=== PATIENT | female | born 1970 | race Caucasian/White ===

== ENCOUNTER 2019-05-11 20:35 | Emergency (ER) | payer SELFPAY ==
[~2019-05-11] VITALS: Ht 154.9 cm; Wt 59.0 kg
[2019-05-11 21:02] LABS: BASO # 0.1 x10^3/uL (0.0-0.2); BASO % 1 % (0-3); EOS # 0.3 x10^3/uL (0.0-0.7); EOS % 5 % (0-3); HEMATOCRIT 38.7 % (36.0-47.0); HEMOGLOBIN 13.2 g/dL (12.0-15.5); LYMPH # 2.5 x10^3/uL (1.0-4.8); LYMPH % 40 % (24-48); MEAN CORPUSCULAR HEMOGLOBIN 29 pg (25-35); MEAN CORPUSCULAR HGB CONC 34 g/dL (31-37); MEAN CORPUSCULAR VOLUME 84 fL (79-100); MONO # 0.6 x10^3/uL (0.0-1.1); MONO % 10 % (0-9); NEUT # 2.8 x10^3/uL (1.8-7.7); NEUT % 45 % (31-73); PLATELET COUNT 235 x10^3/uL (140-400); RED BLOOD COUNT 4.61 x10^6/uL (3.50-5.40); RED CELL DISTRIBUTION WIDTH 12.3 % (11.5-14.5); WHITE BLOOD COUNT 6.3 x10^3/uL (4.0-11.0)
[2019-05-11 21:09] LABS: CALCIUM 8.9 mg/dL (8.5-10.1); GFR 61.4; POTASSIUM 4.1 mmol/L (3.5-5.1)
[2019-05-11 21:14] LABS: ALBUMIN 3.5 g/dL (3.4-5.0); ALBUMIN/GLOBULIN RATIO 0.9 (1.0-1.7); MAGNESIUM 1.8 mg/dL (1.8-2.4); TOTAL BILIRUBIN 0.2 mg/dL (0.2-1.0); TOTAL PROTEIN 7.4 g/dL (6.4-8.2)
--- NOTE | 2019-05-11 21:24 | PHYS DOC ---
Past Medical History Past Medical History: Diabetes-Type II, Hypertension Past Surgical History: No Surgical History Alcohol Use: None Drug Use: None Adult General Chief Complaint Chief Complaint: SYNCOPE HPI HPI Patient is a 39-year-old female who presents after having had syncopal episode at work. Patient states that she was feeling lightheaded and sat down and then thinks she may have passed out. She is not sure exactly what happened. She does indicate that she had a severe headache earlier in the day that she rated at a 10 out of 10 and states that she took some Advil for the headache and headache and gotten better. She does indicate that headache is starting to return again. Patient indicates that initially when she developed lightheadedness that she thought that she was hypoglycemic and so drank some Coca-Cola. EMS reports that blood sugar was 402. Patient denies any chest pain or shortness of breath.[] Review of Systems Review of Systems Constitutional: Denies fever or chills [] Respiratory: Denies cough or shortness of breath [] Cardiovascular: No additional information not addressed in HPI [] GI: Denies abdominal pain, nausea, vomiting or diarrhea [] Integument: Denies rash or skin lesions [] Neurologic: Complains of headache without focal weakness or sensory changes [] All other systems were reviewed and found to be within normal limits, except as documented in this note. Current Medications Current Medications Current Medications Medications (Trade) Dose Ordered Sig/[facility] Start Time Stop Time Status Last Admin Dose Admin Ceftriaxone Sodium (Rocephin) 1 gm 1X ONCE 05/11/19 23:45 05/11/19 23:46 DC Insulin Human Regular (HumuLIN R VIAL) 10 unit 1X ONCE 05/11/19 23:00 05/11/19 23:01 DC 05/11/19 23:04 10 UNIT Allergies Allergies Allergies Coded Allergies Type Severity Reaction Last Updated Verified No Known Drug Allergies 05/11/19 No Physical Exam Physical Exam Constitutional: Well developed, well nourished, no acute distress, non-toxic appearance. [] HENT: Normocephalic, atraumatic, bilateral external ears normal, oropharynx moist, no oral exudates, nose normal. [] Eyes: PERRLA, EOMI, conjunctiva normal, no discharge. [] Neck: Normal range of motion, no tenderness, supple. [] Cardiovascular: Regular rate and rhythm[] Lungs & Thorax: Bilateral breath sounds clear to auscultation [] Abdomen: Bowel sounds normal, soft, no tenderness. [] Skin: Warm, dry, no erythema, no rash. [] Extremities: No tenderness, no cyanosis, no clubbing, ROM intact. [] Neurologic: Alert and oriented X 3, no focal deficits noted. [] Current Patient Data Vital Signs Vital Signs Date Time Temp Pulse Resp B/P (MAP) Pulse Ox O2 Delivery O2 Flow Rate FiO2 05/11/19 22:42 80 98/53 (68) 97 Room Air 05/11/19 21:00 97.6 16 97.6 Lab Values Laboratory Tests Test 05/11/19 20:55 05/11/19 22:38 05/11/19 23:01 White Blood Count 6.3 x10^3/uL (4.0-11.0) Red Blood Count 4.61 x10^6/uL (3.50-5.40) Hemoglobin 13.2 g/dL (12.0-15.5) Hematocrit 38.7 % (36.0-47.0) Mean Corpuscular Volume 84 fL (79-100) Mean Corpuscular Hemoglobin 29 pg (25-35) Mean Corpuscular Hemoglobin Concent 34 g/dL (31-37) Red Cell Distribution Width 12.3 % (11.5-14.5) Platelet Count 235 x10^3/uL (140-400) Neutrophils (%) (Auto) 45 % (31-73) Lymphocytes (%) (Auto) 40 % (24-48) Monocytes (%) (Auto) 10 % (0-9) H Eosinophils (%) (Auto) 5 % (0-3) H Basophils (%) (Auto) 1 % (0-3) Neutrophils # (Auto) 2.8 x10^3/uL (1.8-7.7) Lymphocytes # (Auto) 2.5 x10^3/uL (1.0-4.8) Monocytes # (Auto) 0.6 x10^3/uL (0.0-1.1) Eosinophils # (Auto) 0.3 x10^3/uL (0.0-0.7) Basophils # (Auto) 0.1 x10^3/uL (0.0-0.2) Sodium Level 137 mmol/L (136-145) Potassium Level 4.1 mmol/L (3.5-5.1) Chloride Level 98 mmol/L (98-107) Carbon Dioxide Level 27 mmol/L (21-32) Anion Gap 12 (6-14) Blood Urea Nitrogen 25 mg/dL (7-20) H Creatinine 1.0 mg/dL (0.6-1.0) Estimated GFR (Cockcroft-Gault) 61.4 BUN/Creatinine Ratio 25 (6-20) H Glucose Level 467 mg/dL (70-99) H Calcium Level 8.9 mg/dL (8.5-10.1) Magnesium Level 1.8 mg/dL (1.8-2.4) Total Bilirubin 0.2 mg/dL (0.2-1.0) Aspartate Amino Transferase (AST) 15 U/L (15-37) Alanine Aminotransferase (ALT) 20 U/L (14-59) Alkaline Phosphatase 154 U/L (46-116) H Total Protein 7.4 g/dL (6.4-8.2) Albumin 3.5 g/dL (3.4-5.0) Albumin/Globulin Ratio 0.9 (1.0-1.7) L Urine Collection Type Unknown Urine Color Yellow Urine Clarity Clear Urine pH 6.0 Urine Specific Bagley >=1.030 Urine Protein Negative mg/dL (NEG-TRACE) Urine Glucose (UA) >=1000 mg/dL (NEG) Urine Ketones (Stick) Negative mg/dL (NEG) Urine Blood Negative (NEG) Urine Nitrite Positive (NEG) Urine Bilirubin Negative (NEG) Urine Urobilinogen Dipstick 1.0 mg/dL (0.2 mg/dL) Urine Leukocyte Esterase Negative (NEG) Urine RBC 0 /HPF (0-2) Urine WBC 20-40 /HPF (0-4) Urine Squamous Epithelial Cells Few /LPF Urine Bacteria Many /HPF (0-FEW) Urine Mucus Slight /LPF Glucose (Fingerstick) 409 mg/dL (70-99) H Laboratory Tests 05/11/19 20:55 Laboratory Tests 05/11/19 20:55 EKG EKG EKG demonstrates normal sinus rhythm with rate of 90.[] Radiology/Procedures Radiology/Procedures [] Impressions: PROCEDURE: CT HEAD WO CONTRAST EXAM: CT Head without IV contrast CLINICAL HISTORY: Severe headache, syncope COMPARISON: None. TECHNIQUE: Routine CT of the head without contrast. Soft tissues and bone windows were reviewed. PQRS compliance statement - One or more of the following individualized dose reduction techniques were utilized for this study: 1. Automated exposure control 2. Adjustment of the mA and/or kV according to patient size 3. Use of iterative reconstruction technique FINDINGS: There is no evidence of hemorrhage, mass or extra-axial fluid collection. Pal-white differentiation is maintained with no evidence of edema. There is no mass effect or shift of the intracranial structures. The ventricles, basilar cisterns and cortical sulci are normal in size and configuration for the patients stated age. The cerebellum and brainstem are unremarkable. The calvarium demonstrates no evidence of fracture or focal lesion. Mild right maxillary and ethmoid air cell thickening may be seen with sinusitis. The visualized portions of the orbits are normal. IMPRESSION: 1. No evidence for acute intracranial process. 2. Mild right maxillary and ethmoid air cell thickening may be seen with sinusitis. Electronically signed by: Dusty Sanchez MD (05/11/2019 10:18 PM) [facility] Course & Med Decision Making Course & Med Decision Making Pertinent Labs and Imaging studies reviewed. (See chart for details) [] Dragon Disclaimer Dragon Disclaimer This electronic medical record was generated, in whole or in part, using a voice recognition dictation system. Departure Departure Impression: Primary Impression: Vasovagal syncope Additional Impressions: Dehydration Type 2 diabetes mellitus with hyperglycemia Atopic dermatitis, unspecified Urinary tract infection Disposition: 01 HOME, SELF-CARE Condition: STABLE Patient Instructions: Dehydration, Adult, Eczema, Hyperglycemia, Syncope, Type 2 Diabetes Mellitus, Adult, Urinary Tract Infection Scripts Triamcinolone Acetonide (TRIAMCINOLONE ACETONIDE 0.5% OINT) 15 Gm Oint...g. 1 DANIEL TP BID for 7 Days, #15 GM 0 Refills apply to affected area(s) Prov: MARLEN LEO Jr. DO 05/12/19 Sulfamethoxazole/Trimethoprim (BACTRIM DS TABLET) 1 Each Tablet 1 TAB PO BID for 7 Days, #14 TAB 0 Refills Prov: MARLEN LEO Jr. DO 05/12/19 Problem Qualifiers Additional Impressions: Type 2 diabetes mellitus with hyperglycemia Diabetes mellitus mid wife insulin use: unspecified senior care insulin use status Qualified Codes: E11.65 - Type 2 diabetes mellitus with hyperglycemia Atopic dermatitis, unspecified Atopic dermatitis type: unspecified Qualified Codes: L20.9 - Atopic dermatitis, unspecified Urinary tract infection Urinary tract infection type: site unspecified Hematuria presence: without hematuria Qualified Codes: N39.0 - Urinary tract infection, site not specified MARLEN LEO Jr. DO May 11, 2019 21:23
--- NOTE | 2019-05-11 22:21 | RAD ---
EXAM: CT Head without IV contrast CLINICAL HISTORY: Severe headache, syncope COMPARISON: None. TECHNIQUE: Routine CT of the head without contrast. Soft tissues and bone windows were reviewed. PQRS compliance statement - One or more of the following individualized dose reduction techniques were utilized for this study: 1. Automated exposure control 2. Adjustment of the mA and/or kV according to patient size 3. Use of iterative reconstruction technique FINDINGS: There is no evidence of hemorrhage, mass or extra-axial fluid collection. Pal-white differentiation is maintained with no evidence of edema. There is no mass effect or shift of the intracranial structures. The ventricles, basilar cisterns and cortical sulci are normal in size and configuration for the patients stated age. The cerebellum and brainstem are unremarkable. The calvarium demonstrates no evidence of fracture or focal lesion. Mild right maxillary and ethmoid air cell thickening may be seen with sinusitis. The visualized portions of the orbits are normal. IMPRESSION: 1. No evidence for acute intracranial process. 2. Mild right maxillary and ethmoid air cell thickening may be seen with sinusitis. Electronically signed by: Dusty Sanchez MD (05/11/2019 10:18 PM) [id number]
[2019-05-11 22:44] LABS: BILIRUBIN,URINE NEGATIVE (NEG); CLARITY,URINE CLEAR; COLOR,URINE YELLOW; NITRITE,URINE POSITIVE (NEG); PROTEIN,URINE NEGATIVE (NEG-TRACE)
[2019-05-11 22:48] LABS: RBC,URINE 0 /HPF (0-2); SQUAMOUS EPITHELIAL CELL,UR FEW /LPF
[2019-05-11 22:49] LABS: BACTERIA,URINE MANY /HPF (0-FEW); WBC,URINE 20-40 /HPF (0-4)
[2019-05-11] MEDS ORDERED: INSULIN REGULAR 100 UNIT/ML 3ML VIAL. IV ONE (23:00)
[2019-05-11] MEDS ORDERED: cefTRIAXone IV Push 1 GM VIAL. IVP ONE (23:45)
[2019-05-12] MEDS ORDERED: TRIA15OI9 TP (00:06)
[2019-05-12] MEDS ORDERED: SULF1TAB24 PO (00:06)
[2019-05-12 00:42] VITALS: BP 96/56
--- NOTE | 2019-05-13 06:23 | EKG ---
[facility] [address] [place] [address] Test Date: 2019-05-11 Test Time: 20:40:00 Pat Name: MYRTLE MAXWELL Department: Room: Gender: F [employer]: : 1970 Requested By: MARLEN LEO Order Number: [id number] Reading MD: Measurements Intervals [place] Rate: 90 P: 26 UT: 136 QRS: 21 QRSD: 90 T: 21 QT: 358 QTc: 442 Interpretive Statements SINUS RHYTHM NORMAL ECG RI6.01 No previous ECG available for comparison
== END 2019-05-12 00:59 | disposition home or self-care (01) ==
LOC: MERGE 20:35 → ER 20:35
DX: R55 Syncope and collapse (principal); E86.0 Dehydration; E11.65 Type 2 diabetes mellitus with hyperglycemia; L20.9 Atopic dermatitis, unspecified; N39.0 Urinary tract infection, site not specified; I10 Essential (primary) hypertension
CPT/HCPCS: 36415; 70450; 80053; 81001; 82962; 83735; 85025; 87086; 93005; 96374; 96375; 99285; J0696; J1815